=== PATIENT | female | born 1965 | race Caucasian/White ===

== ENCOUNTER → 2018-06-30 | Day surgery (SDC) | payer OTHER ==
[~2018-06-30] MED LIST: FENTANYL CITRATE/PF 100MCG/2 ML INJ ONE; LIDOCAINE HCL 2% LOCAL INJ 5 ML SDV VIAL INJ ONE; MIDAZOLAM HCL 2 MG/2 ML VIAL ONE; PROPOFOL IV EMULSION 10 MG/ML 20 ML VIAL ONE
[2018-06-30 14:30] VITALS: BP 106/76
--- NOTE | 2018-07-02 12:52 | Operative Report ---
DATE OF PROCEDURE: June 30, 2018 PREOPERATIVE DIAGNOSIS: Adhesive capsulitis left shoulder. POSTOPERATIVE DIAGNOSIS: Adhesive capsulitis left shoulder. PROCEDURE PERFORMED: The patient underwent a manipulation under anesthesia of the left shoulder. OVEN DRIER TENDER: None. ANESTHESIA: Monitored anesthesia care and IV sedation. COMPLICATIONS: None. INTRAVENOUS FLUIDS: As per the anesthesia record. OPERATIVE PROCEDURE IN DETAIL: Ms. Calabrese was taken to the operating room and placed in the supine position on the operating room table. Following induction of general anesthesia as well as endotracheal intubation, the patient's left shoulder was examined under anesthesia. She had a normal-appearing shoulder. Passive range of motion of the shoulder joint demonstrated 145 degrees of passive forward flexion and abduction. She had stiffness with attempts at greater passive forward flexion and abduction. The shoulder was carefully stabilized, and the shoulder was manipulated under anesthesia. Fibrous bands were felt to give way during the manipulation, and this resulted in full passive range of motion of the shoulder joint in both forward flexion and abduction. The patient's IV sedation was reversed, and the patient was awakened and taken to the postanesthesia care unit in stable condition. Job#: [id number]
== END | disposition home or self-care (01) ==
LOC: OR 11:32
PROVIDERS: ATTEND Specialist
DX: M75.02 Adhesive capsulitis of left shoulder (principal); S46.092A Other injury of muscle(s) and tendon(s) of the rotator cuff of left shoulder, initial encounter; K58.9 Irritable bowel syndrome, unspecified; K21.9 Gastro-esophageal reflux disease without esophagitis; W01.0XXA Fall on same level from slipping, tripping and stumbling without subsequent striking against object, initial encounter; X58.XXXA Exposure to other specified factors, initial encounter; Y92.89 Other specified places as the place of occurrence of the external cause; Z01.810 Encounter for preprocedural cardiovascular examination; Z68.31 Body mass index [BMI] 31.0-31.9, adult
CPT/HCPCS: 23700; 81025; 93005; J2001; J2250; J2704

== ENCOUNTER → 2024-04-16 | Day surgery (SDC) | payer BC ==
[~2024-04-16] MED LIST changes: +ATORVASTATIN CA10 MG PO; +DIOVAN80 MG PO; +FAMOTIDINE20 MG PO; -FENTANYL CITRATE/PF 100MCG/2 ML INJ ONE; +HYDROCHLOROTHIA25 MG PO; +LACTATED RINGER'S 1,000 ML ONE; +LATANOPROST2.5 ML OU; +VITAMIN D31250 MCG PO
[2024-04-16 14:40] VITALS: BP 110/62; PULSE 94; RESP 16; TEMP 97.5; O2SAT 97
== END | disposition home or self-care (01) ==
LOC: OR 11:47
PROVIDERS: ATTEND Internal Medicine Gastroenterology
DX: D12.3 Benign neoplasm of transverse colon (principal); K58.9 Irritable bowel syndrome, unspecified; K64.8 Other hemorrhoids; K21.9 Gastro-esophageal reflux disease without esophagitis; I10 Essential (primary) hypertension; E78.5 Hyperlipidemia, unspecified; Z01.810 Encounter for preprocedural cardiovascular examination; Z79.899 Other long term (current) drug therapy
CPT/HCPCS: 36415; 45384; 84702; 93005; J2003; J2250; J2704; J7121